=== PATIENT | female | born 1945 | race Caucasian/White ===

== ENCOUNTER 2023-05-08 12:20 | Inpatient (IN) | payer MEDICARE, OTHER ==
[2023-05-08] MEDS ORDERED: Acetaminophen/Codeine 30-300mg Tablet PO PRN (13:23)
[2023-05-08] MEDS ORDERED: Acetaminophen 500 MG TAB PO PRN (15:09)
[2023-05-08] MEDS: Propranolol 10 MG TAB PO SCH ×2 (15:31→20:56)
[2023-05-08] MEDS: Acetaminophen 500 MG TAB PO PRN (16:51)
[2023-05-08] MEDS: HumaLOG 300 UNITS/3 ML VIAL SC PRN (17:43)
[2023-05-08] MEDS ORDERED: Dextrose 50% Abboject 50 ML SYRINGE IVP PRN (17:45)
[2023-05-08] MEDS ORDERED: Dextrose 5% in Water 1,000 ML IV PRN (17:45)
[2023-05-08] MEDS ORDERED: Glucagon 1 MG/ML KIT IM PRN (17:45)
[2023-05-08] MEDS: Atorvastatin Calcium 10 MG TAB PO SCH (20:57)
[2023-05-08] MEDS: Aspirin 81 mg Enteric Coated Tablet PO SCH (20:57)
[2023-05-08] MEDS: clonazePAM 0.5 MG TAB PO SCH (20:58)
[2023-05-08] MEDS: Senokot S 8.6-50 MG TAB PO SCH (20:59)
[2023-05-09] MEDS: Levothyroxine Sodium 100 MCG TAB PO SCH (05:47)
[2023-05-09] MEDS: Propranolol 10 MG TAB PO SCH ×2 (08:14→14:56)
[2023-05-09] MEDS: Senokot S 8.6-50 MG TAB PO SCH ×2 (08:15→21:36)
[2023-05-09] MEDS: Losartan 25 MG TAB PO SCH (08:15)
[2023-05-09] MEDS: clonazePAM 0.5 MG TAB PO SCH ×2 (08:15→21:37)
[2023-05-09] MEDS: Escitalopram Oxalate 10 mg Tablet PO SCH (08:15)
[2023-05-09] MEDS: Cholecalciferol 1,000 UNITS (25 MCG) TAB PO SCH (08:16)
[2023-05-09] MEDS: Lantus 1000 UNITS/10 ML VIAL SC SCH (08:16)
[2023-05-09] MEDS: Polyethylene Glycol 3350 17 GM Packet PO SCH (08:17)
[2023-05-09] MEDS: Lidocaine 4% Patch TD SCH (08:17)
[2023-05-09] MEDS: HumaLOG 300 UNITS/3 ML VIAL SC PRN (12:11)
[2023-05-09] MEDS: Acetaminophen/Codeine 30-300mg Tablet PO PRN (16:05)
[2023-05-09] MEDS: Transdermal Patch Removal TOP SCH (20:59)
[2023-05-09] MEDS: Atorvastatin Calcium 10 MG TAB PO SCH (21:36)
[2023-05-09] MEDS: Aspirin 81 mg Enteric Coated Tablet PO SCH (21:36)
[2023-05-10] MEDS: Levothyroxine Sodium 100 MCG TAB PO SCH (05:34)
[2023-05-10 06:37] LABS: Hematocrit 39.7 % (36.0-47.0); Hemoglobin 13.2 g/dL (12.0-16.0); Mean Corpuscular HGB CONC 33.3 g/dL (32.0-36.0); Mean Corpuscular Hemoglobin 31.7 pg (27.0-31.0); Mean Corpuscular Volume 95.2 fl (78.0-98.0); Mean Platelet Volume 8.9 fL (7.4-10.4); Platelet Count 160 10x3/uL (130-400); RBC Distribution Width 12.3 % (11.5-14.5); Red Blood Cell (RBC) Count 4.17 mill/uL (4.20-5.40); White Blood Cell (WBC) Count 7.4 10x3/uL (4.8-10.8)
[2023-05-10 07:02] LABS: Anion Gap 17 mmol/L (10-20); BUN (Urea Nitrogen) 12 mg/dL (9.8-20.1); Calc. Creatinine Clearance 85 mL/min (70-130); Carbon Dioxide 21 mmol/L (23-31); Chloride 99 mmol/L (98-107); Estimated GFR 90; Glucose 97 mg/dL (83-110); Potassium 4.1 mmol/L (3.5-5.1); Sodium 133 mmol/L (136-145)
[2023-05-10] MEDS: Cholecalciferol 1,000 UNITS (25 MCG) TAB PO SCH (08:50)
[2023-05-10] MEDS: clonazePAM 0.5 MG TAB PO SCH ×2 (08:50→21:44)
[2023-05-10] MEDS: Escitalopram Oxalate 10 mg Tablet PO SCH (08:51)
[2023-05-10] MEDS: Lantus 1000 UNITS/10 ML VIAL SC SCH (08:51)
[2023-05-10] MEDS: Losartan 25 MG TAB PO SCH (08:51)
[2023-05-10] MEDS: Lidocaine 4% Patch TD SCH (08:52)
[2023-05-10] MEDS: Polyethylene Glycol 3350 17 GM Packet PO SCH (08:52)
[2023-05-10] MEDS: Senokot S 8.6-50 MG TAB PO SCH ×2 (08:52→21:44)
[2023-05-10] MEDS: Acetaminophen/Codeine 30-300mg Tablet PO PRN ×2 (11:23→18:26)
[2023-05-10] MEDS: HumaLOG 300 UNITS/3 ML VIAL SC PRN (11:53)
[2023-05-10] MEDS ORDERED: HumaLOG 300 UNITS/3 ML VIAL SC PRN (21:30)
[2023-05-10] MEDS: Atorvastatin Calcium 10 MG TAB PO SCH (21:43)
[2023-05-10] MEDS: Aspirin 81 mg Enteric Coated Tablet PO SCH (21:44)
[2023-05-10] MEDS: Propranolol 10 MG TAB PO SCH (21:44)
[2023-05-10] MEDS: Transdermal Patch Removal TOP SCH (21:45)
[2023-05-11] MEDS: Levothyroxine Sodium 100 MCG TAB PO SCH (05:34)
[2023-05-11] MEDS: Acetaminophen/Codeine 30-300mg Tablet PO PRN ×3 (05:34→17:58)
[2023-05-11] MEDS: Cholecalciferol 1,000 UNITS (25 MCG) TAB PO SCH (08:36)
[2023-05-11] MEDS: clonazePAM 0.5 MG TAB PO SCH ×2 (08:36→21:13)
[2023-05-11] MEDS: Losartan 25 MG TAB PO SCH (08:36)
[2023-05-11] MEDS: Escitalopram Oxalate 10 mg Tablet PO SCH (08:36)
[2023-05-11] MEDS: Polyethylene Glycol 3350 17 GM Packet PO SCH (08:37)
[2023-05-11] MEDS: Lidocaine 4% Patch TD SCH (08:37)
[2023-05-11] MEDS: Senokot S 8.6-50 MG TAB PO SCH ×2 (08:37→21:14)
[2023-05-11] MEDS: Lantus 1000 UNITS/10 ML VIAL SC SCH (08:39)
[2023-05-11] MEDS: HumaLOG 300 UNITS/3 ML VIAL SC PRN (11:57)
[2023-05-11] MEDS: Propranolol 10 MG TAB PO SCH (21:12)
[2023-05-11] MEDS: Atorvastatin Calcium 10 MG TAB PO SCH (21:13)
[2023-05-11] MEDS: Aspirin 81 mg Enteric Coated Tablet PO SCH (21:14)
[2023-05-11] MEDS: Transdermal Patch Removal TOP SCH (21:15)
[2023-05-12] MEDS: Acetaminophen/Codeine 30-300mg Tablet PO PRN ×3 (01:21→20:30)
[2023-05-12] MEDS: Levothyroxine Sodium 100 MCG TAB PO SCH (05:32)
[2023-05-12] MEDS: Acetaminophen 500 MG TAB PO PRN (05:32)
[2023-05-12] MEDS: Polyethylene Glycol 3350 17 GM Packet PO SCH (08:28)
[2023-05-12] MEDS: Cholecalciferol 1,000 UNITS (25 MCG) TAB PO SCH (08:28)
[2023-05-12] MEDS: Senokot S 8.6-50 MG TAB PO SCH ×2 (08:29→20:28)
[2023-05-12] MEDS: Losartan 25 MG TAB PO SCH (08:30)
[2023-05-12] MEDS: clonazePAM 0.5 MG TAB PO SCH ×2 (08:30→20:28)
[2023-05-12] MEDS: Escitalopram Oxalate 10 mg Tablet PO SCH (08:30)
[2023-05-12] MEDS: Lidocaine 4% Patch TD SCH (08:30)
[2023-05-12] MEDS: Lantus 1000 UNITS/10 ML VIAL SC SCH (08:31)
[2023-05-12] MEDS: HumaLOG 300 UNITS/3 ML VIAL SC PRN (12:22)
[2023-05-12] MEDS: Atorvastatin Calcium 10 MG TAB PO SCH (20:27)
[2023-05-12] MEDS: Aspirin 81 mg Enteric Coated Tablet PO SCH (20:28)
[2023-05-12] MEDS: Propranolol 10 MG TAB PO SCH (20:28)
[2023-05-12] MEDS: Transdermal Patch Removal TOP SCH (20:32)
[2023-05-13] MEDS: Acetaminophen/Codeine 30-300mg Tablet PO PRN ×3 (05:26→21:07)
[2023-05-13] MEDS: Levothyroxine Sodium 100 MCG TAB PO SCH (05:26)
[2023-05-13 05:41] LABS: Anion Gap 15 mmol/L (10-20); BUN (Urea Nitrogen) 10 mg/dL (9.8-20.1); Calc. Creatinine Clearance 80 mL/min (70-130); Carbon Dioxide 26 mmol/L (23-31); Chloride 97 mmol/L (98-107); Estimated GFR 84; Glucose 139 mg/dL (83-110); Potassium 4.7 mmol/L (3.5-5.1); Sodium 133 mmol/L (136-145)
[2023-05-13] MEDS: clonazePAM 0.5 MG TAB PO SCH ×2 (08:05→21:06)
[2023-05-13] MEDS: Escitalopram Oxalate 10 mg Tablet PO SCH (08:05)
[2023-05-13] MEDS: Cholecalciferol 1,000 UNITS (25 MCG) TAB PO SCH (08:05)
[2023-05-13] MEDS: Lantus 1000 UNITS/10 ML VIAL SC SCH (08:06)
[2023-05-13] MEDS: Polyethylene Glycol 3350 17 GM Packet PO SCH (08:07)
[2023-05-13] MEDS: Losartan 25 MG TAB PO SCH (08:07)
[2023-05-13] MEDS: Lidocaine 4% Patch TD SCH (08:07)
[2023-05-13] MEDS: HumaLOG 300 UNITS/3 ML VIAL SC PRN (08:08)
[2023-05-13] MEDS: Senokot S 8.6-50 MG TAB PO SCH ×2 (08:08→21:05)
[2023-05-13] MEDS: Propranolol 10 MG TAB PO SCH (21:04)
[2023-05-13] MEDS: Aspirin 81 mg Enteric Coated Tablet PO SCH (21:05)
[2023-05-13] MEDS: Atorvastatin Calcium 10 MG TAB PO SCH (21:05)
[2023-05-13] MEDS: Transdermal Patch Removal TOP SCH (21:08)
[2023-05-14] MEDS: Acetaminophen/Codeine 30-300mg Tablet PO PRN ×2 (05:29→18:47)
[2023-05-14] MEDS: Levothyroxine Sodium 100 MCG TAB PO SCH (05:29)
[2023-05-14] MEDS: clonazePAM 0.5 MG TAB PO SCH ×2 (08:15→21:23)
[2023-05-14] MEDS: HumaLOG 300 UNITS/3 ML VIAL SC PRN (08:16)
[2023-05-14] MEDS: Lantus 1000 UNITS/10 ML VIAL SC SCH (08:18)
[2023-05-14] MEDS: Cholecalciferol 1,000 UNITS (25 MCG) TAB PO SCH (08:19)
[2023-05-14] MEDS: Escitalopram Oxalate 10 mg Tablet PO SCH (08:19)
[2023-05-14] MEDS: Lidocaine 4% Patch TD SCH (08:20)
[2023-05-14] MEDS: Polyethylene Glycol 3350 17 GM Packet PO SCH (08:20)
[2023-05-14] MEDS: Senokot S 8.6-50 MG TAB PO SCH ×2 (08:20→21:24)
[2023-05-14] MEDS: Losartan 25 MG TAB PO SCH (08:20)
[2023-05-14] MEDS ORDERED: Docusate Sodium 100 MG/10 ML UDCUP PO PRN (13:04)
[2023-05-14] MEDS ORDERED: Bisacodyl 10 MG SUPP PR PRN (17:52)
[2023-05-14] MEDS ORDERED: Fleet Saline Enema 133 ML BOT FS PRN (17:53)
[2023-05-14] MEDS: Atorvastatin Calcium 10 MG TAB PO SCH (21:23)
[2023-05-14] MEDS: Propranolol 10 MG TAB PO SCH (21:23)
[2023-05-14] MEDS: Aspirin 81 mg Enteric Coated Tablet PO SCH (21:24)
[2023-05-14] MEDS: Transdermal Patch Removal TOP SCH (22:23)
[2023-05-15] MEDS: Acetaminophen/Codeine 30-300mg Tablet PO PRN ×3 (01:49→20:54)
[2023-05-15] MEDS: Levothyroxine Sodium 100 MCG TAB PO SCH (05:56)
[2023-05-15] MEDS: Lantus 1000 UNITS/10 ML VIAL SC SCH (08:20)
[2023-05-15] MEDS: Senokot S 8.6-50 MG TAB PO SCH ×2 (08:21→20:08)
[2023-05-15] MEDS: Polyethylene Glycol 3350 17 GM Packet PO SCH (08:21)
[2023-05-15] MEDS: Escitalopram Oxalate 10 mg Tablet PO SCH (08:21)
[2023-05-15] MEDS: Lidocaine 4% Patch TD SCH (08:21)
[2023-05-15] MEDS: Cholecalciferol 1,000 UNITS (25 MCG) TAB PO SCH (08:21)
[2023-05-15] MEDS: Losartan 25 MG TAB PO SCH (08:21)
[2023-05-15] MEDS: clonazePAM 0.5 MG TAB PO SCH ×2 (08:26→20:07)
[2023-05-15] MEDS: HumaLOG 300 UNITS/3 ML VIAL SC PRN ×2 (12:07→17:14)
[2023-05-15] MEDS: Propranolol 10 MG TAB PO SCH (20:07)
[2023-05-15] MEDS: Atorvastatin Calcium 10 MG TAB PO SCH (20:07)
[2023-05-15] MEDS: Aspirin 81 mg Enteric Coated Tablet PO SCH (20:08)
[2023-05-15] MEDS: Meclizine HCl 25 MG TAB PO PRN (23:27)
[2023-05-15] MEDS: Transdermal Patch Removal TOP SCH (23:35)
[2023-05-16] MEDS: Levothyroxine Sodium 100 MCG TAB PO SCH (05:31)
[2023-05-16] MEDS: clonazePAM 0.5 MG TAB PO SCH ×2 (08:27→20:20)
[2023-05-16] MEDS: Polyethylene Glycol 3350 17 GM Packet PO SCH (08:29)
[2023-05-16] MEDS: Lidocaine 4% Patch TD SCH (08:29)
[2023-05-16] MEDS: Lantus 1000 UNITS/10 ML VIAL SC SCH (08:33)
[2023-05-16] MEDS: Losartan 25 MG TAB PO SCH (08:33)
[2023-05-16] MEDS: Cholecalciferol 1,000 UNITS (25 MCG) TAB PO SCH (08:33)
[2023-05-16] MEDS: Senokot S 8.6-50 MG TAB PO SCH ×2 (08:33→20:22)
[2023-05-16] MEDS: Escitalopram Oxalate 10 mg Tablet PO SCH (08:33)
[2023-05-16] MEDS: HumaLOG 300 UNITS/3 ML VIAL SC PRN ×2 (12:02→17:33)
[2023-05-16] MEDS: Aspirin 81 mg Enteric Coated Tablet PO SCH (20:20)
[2023-05-16] MEDS: Atorvastatin Calcium 10 MG TAB PO SCH (20:20)
[2023-05-16] MEDS: Acetaminophen/Codeine 30-300mg Tablet PO PRN (20:21)
[2023-05-16] MEDS: Propranolol 10 MG TAB PO SCH (20:21)
[2023-05-16] MEDS: Transdermal Patch Removal TOP SCH (20:23)
[2023-05-17] MEDS: Levothyroxine Sodium 100 MCG TAB PO SCH (05:42)
[2023-05-17] MEDS: Acetaminophen/Codeine 30-300mg Tablet PO PRN ×2 (05:42→23:14)
[2023-05-17] MEDS: Polyethylene Glycol 3350 17 GM Packet PO SCH (08:11)
[2023-05-17] MEDS: Senokot S 8.6-50 MG TAB PO SCH ×2 (08:11→20:23)
[2023-05-17] MEDS: Lidocaine 4% Patch TD SCH (08:11)
[2023-05-17] MEDS: Escitalopram Oxalate 10 mg Tablet PO SCH (08:12)
[2023-05-17] MEDS: Cholecalciferol 1,000 UNITS (25 MCG) TAB PO SCH (08:12)
[2023-05-17] MEDS: clonazePAM 0.5 MG TAB PO SCH ×2 (08:12→20:23)
[2023-05-17] MEDS: Losartan 25 MG TAB PO SCH (08:12)
[2023-05-17] MEDS: Lantus 1000 UNITS/10 ML VIAL SC SCH (08:13)
[2023-05-17] MEDS: HumaLOG 300 UNITS/3 ML VIAL SC PRN (08:13)
[2023-05-17] MEDS: Acetaminophen 500 MG TAB PO PRN ×2 (09:19→20:43)
[2023-05-17] MEDS: Nystatin 500,000 UNITS/5 ML UDCUP SSW SCH ×2 (16:56→20:21)
[2023-05-17] MEDS: Propranolol 10 MG TAB PO SCH (20:21)
[2023-05-17] MEDS: Aspirin 81 mg Enteric Coated Tablet PO SCH (20:23)
[2023-05-17] MEDS: Atorvastatin Calcium 10 MG TAB PO SCH (20:23)
[2023-05-17] MEDS: Transdermal Patch Removal TOP SCH (20:24)
[2023-05-18] MEDS: Acetaminophen/Codeine 30-300mg Tablet PO PRN ×3 (05:31→20:12)
[2023-05-18] MEDS: Levothyroxine Sodium 100 MCG TAB PO SCH (05:32)
[2023-05-18] MEDS: Acetaminophen 500 MG TAB PO PRN ×2 (07:46→17:30)
[2023-05-18] MEDS: Cholecalciferol 1,000 UNITS (25 MCG) TAB PO SCH (08:07)
[2023-05-18] MEDS: Escitalopram Oxalate 10 mg Tablet PO SCH (08:07)
[2023-05-18] MEDS: Losartan 25 MG TAB PO SCH (08:07)
[2023-05-18] MEDS: Polyethylene Glycol 3350 17 GM Packet PO SCH (08:07)
[2023-05-18] MEDS: Lidocaine 4% Patch TD SCH (08:07)
[2023-05-18] MEDS: Nystatin 500,000 UNITS/5 ML UDCUP SSW SCH ×4 (08:07→20:12)
[2023-05-18] MEDS: clonazePAM 0.5 MG TAB PO SCH ×2 (08:08→20:12)
[2023-05-18] MEDS: Senokot S 8.6-50 MG TAB PO SCH ×2 (08:08→20:13)
[2023-05-18] MEDS: Lantus 1000 UNITS/10 ML VIAL SC SCH (08:16)
[2023-05-18] MEDS: HumaLOG 300 UNITS/3 ML VIAL SC PRN (08:16)
[2023-05-18] MEDS: Aspirin 81 mg Enteric Coated Tablet PO SCH (20:13)
[2023-05-18] MEDS: Ibuprofen 400 MG TAB PO PRN (20:13)
[2023-05-18] MEDS: Propranolol 10 MG TAB PO SCH (20:13)
[2023-05-18] MEDS: Transdermal Patch Removal TOP SCH (20:13)
[2023-05-18] MEDS: Atorvastatin Calcium 10 MG TAB PO SCH (20:13)
[2023-05-19] MEDS: Acetaminophen/Codeine 30-300mg Tablet PO PRN ×2 (05:32→20:39)
[2023-05-19] MEDS: Levothyroxine Sodium 100 MCG TAB PO SCH (05:32)
[2023-05-19] MEDS: Ibuprofen 400 MG TAB PO PRN ×2 (05:32→15:06)
[2023-05-19] MEDS: Polyethylene Glycol 3350 17 GM Packet PO SCH (08:44)
[2023-05-19] MEDS: Lidocaine 4% Patch TD SCH (08:45)
[2023-05-19] MEDS: Senokot S 8.6-50 MG TAB PO SCH ×2 (08:45→20:38)
[2023-05-19] MEDS: Losartan 25 MG TAB PO SCH (08:45)
[2023-05-19] MEDS: Cholecalciferol 1,000 UNITS (25 MCG) TAB PO SCH (08:45)
[2023-05-19] MEDS: Escitalopram Oxalate 10 mg Tablet PO SCH (08:46)
[2023-05-19] MEDS: Lantus 1000 UNITS/10 ML VIAL SC SCH (08:46)
[2023-05-19] MEDS: clonazePAM 0.5 MG TAB PO SCH ×2 (08:49→20:38)
[2023-05-19] MEDS: Nystatin 500,000 UNITS/5 ML UDCUP SSW SCH ×4 (08:59→20:39)
[2023-05-19] MEDS: Aspirin 81 mg Enteric Coated Tablet PO SCH (20:39)
[2023-05-19] MEDS: Propranolol 10 MG TAB PO SCH (20:39)
[2023-05-19] MEDS: Atorvastatin Calcium 10 MG TAB PO SCH (20:39)
[2023-05-19] MEDS: Transdermal Patch Removal TOP SCH (20:40)
[2023-05-20] MEDS: Levothyroxine Sodium 100 MCG TAB PO SCH (05:00)
[2023-05-20] MEDS: Ibuprofen 400 MG TAB PO PRN ×3 (05:00→20:19)
[2023-05-20] MEDS: Acetaminophen/Codeine 30-300mg Tablet PO PRN ×2 (05:01→20:19)
[2023-05-20] MEDS: Lantus 1000 UNITS/10 ML VIAL SC SCH (08:23)
[2023-05-20] MEDS: Lidocaine 4% Patch TD SCH (08:23)
[2023-05-20] MEDS: clonazePAM 0.5 MG TAB PO SCH ×2 (08:24→20:14)
[2023-05-20] MEDS: Polyethylene Glycol 3350 17 GM Packet PO SCH (08:25)
[2023-05-20] MEDS: Losartan 25 MG TAB PO SCH (08:25)
[2023-05-20] MEDS: Escitalopram Oxalate 10 mg Tablet PO SCH (08:25)
[2023-05-20] MEDS: Senokot S 8.6-50 MG TAB PO SCH ×2 (08:25→20:14)
[2023-05-20] MEDS: Cholecalciferol 1,000 UNITS (25 MCG) TAB PO SCH (08:25)
[2023-05-20] MEDS: Nystatin 500,000 UNITS/5 ML UDCUP SSW SCH (08:26)
[2023-05-20] MEDS: HumaLOG 300 UNITS/3 ML VIAL SC PRN ×2 (11:17→17:02)
[2023-05-20] MEDS: Propranolol 10 MG TAB PO SCH (20:13)
[2023-05-20] MEDS: Aspirin 81 mg Enteric Coated Tablet PO SCH (20:14)
[2023-05-20] MEDS: Atorvastatin Calcium 10 MG TAB PO SCH (20:14)
[2023-05-20] MEDS: Transdermal Patch Removal TOP SCH (20:15)
[2023-05-21] MEDS: Ibuprofen 400 MG TAB PO PRN ×2 (05:32→18:31)
[2023-05-21] MEDS: Acetaminophen/Codeine 30-300mg Tablet PO PRN ×2 (05:32→18:30)
[2023-05-21] MEDS: Levothyroxine Sodium 100 MCG TAB PO SCH (05:32)
[2023-05-21] MEDS: Escitalopram Oxalate 10 mg Tablet PO SCH (08:38)
[2023-05-21] MEDS: Losartan 25 MG TAB PO SCH (08:39)
[2023-05-21] MEDS: clonazePAM 0.5 MG TAB PO SCH ×2 (08:39→21:10)
[2023-05-21] MEDS: Senokot S 8.6-50 MG TAB PO SCH ×2 (08:39→21:10)
[2023-05-21] MEDS: Cholecalciferol 1,000 UNITS (25 MCG) TAB PO SCH (08:39)
[2023-05-21] MEDS: Polyethylene Glycol 3350 17 GM Packet PO SCH (08:40)
[2023-05-21] MEDS: Lantus 1000 UNITS/10 ML VIAL SC SCH (08:41)
[2023-05-21] MEDS: Lidocaine 4% Patch TD SCH (08:42)
[2023-05-21] MEDS: Transdermal Patch Removal TOP SCH (21:10)
[2023-05-21] MEDS: Propranolol 10 MG TAB PO SCH (21:10)
[2023-05-21] MEDS: Atorvastatin Calcium 10 MG TAB PO SCH (21:10)
[2023-05-21] MEDS: Aspirin 81 mg Enteric Coated Tablet PO SCH (21:10)
[2023-05-22] MEDS: Levothyroxine Sodium 100 MCG TAB PO SCH (07:16)
[2023-05-22] MEDS: Senokot S 8.6-50 MG TAB PO SCH ×2 (08:24→19:39)
[2023-05-22] MEDS: Escitalopram Oxalate 10 mg Tablet PO SCH (08:24)
[2023-05-22] MEDS: Polyethylene Glycol 3350 17 GM Packet PO SCH (08:24)
[2023-05-22] MEDS: clonazePAM 0.5 MG TAB PO SCH ×2 (08:24→19:39)
[2023-05-22] MEDS: Losartan 25 MG TAB PO SCH (08:24)
[2023-05-22] MEDS: Cholecalciferol 1,000 UNITS (25 MCG) TAB PO SCH (08:24)
[2023-05-22] MEDS: Lidocaine 4% Patch TD SCH (08:25)
[2023-05-22] MEDS: Lantus 1000 UNITS/10 ML VIAL SC SCH (08:25)
[2023-05-22] MEDS: Ibuprofen 400 MG TAB PO PRN ×2 (11:04→19:40)
[2023-05-22] MEDS: HumaLOG 300 UNITS/3 ML VIAL SC PRN (17:27)
[2023-05-22] MEDS: Aspirin 81 mg Enteric Coated Tablet PO SCH (19:39)
[2023-05-22] MEDS: Propranolol 10 MG TAB PO SCH (19:39)
[2023-05-22] MEDS: Atorvastatin Calcium 10 MG TAB PO SCH (19:40)
[2023-05-22] MEDS: Acetaminophen/Codeine 30-300mg Tablet PO PRN (19:41)
[2023-05-22] MEDS: Transdermal Patch Removal TOP SCH (22:22)
[2023-05-23 05:25] LABS: Hematocrit 35.3 % (36.0-47.0); Hemoglobin 12.3 g/dL (12.0-16.0); Platelet Count 237 10x3/uL (130-400)
[2023-05-23] MEDS: Levothyroxine Sodium 100 MCG TAB PO SCH (05:31)
[2023-05-23] MEDS: Acetaminophen/Codeine 30-300mg Tablet PO PRN (09:24)
[2023-05-23] MEDS: Losartan 25 MG TAB PO SCH (09:25)
[2023-05-23] MEDS: Senokot S 8.6-50 MG TAB PO SCH ×2 (09:25→20:30)
[2023-05-23] MEDS: Ibuprofen 400 MG TAB PO PRN ×2 (09:25→20:31)
[2023-05-23] MEDS: clonazePAM 0.5 MG TAB PO SCH ×2 (09:25→20:31)
[2023-05-23] MEDS: Escitalopram Oxalate 10 mg Tablet PO SCH (09:25)
[2023-05-23] MEDS: Polyethylene Glycol 3350 17 GM Packet PO SCH (09:26)
[2023-05-23] MEDS: Cholecalciferol 1,000 UNITS (25 MCG) TAB PO SCH (09:26)
[2023-05-23] MEDS: Lantus 1000 UNITS/10 ML VIAL SC SCH (09:30)
[2023-05-23] MEDS: Lidocaine 4% Patch TD SCH (09:30)
[2023-05-23] MEDS: Transdermal Patch Removal TOP SCH (19:38)
[2023-05-23] MEDS: Propranolol 10 MG TAB PO SCH (20:30)
[2023-05-23] MEDS: Atorvastatin Calcium 10 MG TAB PO SCH (20:30)
[2023-05-23] MEDS: Aspirin 81 mg Enteric Coated Tablet PO SCH (20:31)
[2023-05-24] MEDS: Levothyroxine Sodium 100 MCG TAB PO SCH (05:06)
[2023-05-24] MEDS: Acetaminophen/Codeine 30-300mg Tablet PO PRN ×2 (05:06→20:22)
[2023-05-24] MEDS: Senokot S 8.6-50 MG TAB PO SCH ×2 (08:52→20:17)
[2023-05-24] MEDS: Escitalopram Oxalate 10 mg Tablet PO SCH (08:52)
[2023-05-24] MEDS: clonazePAM 0.5 MG TAB PO SCH ×2 (08:52→20:14)
[2023-05-24] MEDS: Losartan 25 MG TAB PO SCH (08:52)
[2023-05-24] MEDS: Cholecalciferol 1,000 UNITS (25 MCG) TAB PO SCH (08:53)
[2023-05-24] MEDS: Lantus 1000 UNITS/10 ML VIAL SC SCH (08:53)
[2023-05-24] MEDS: Polyethylene Glycol 3350 17 GM Packet PO SCH (08:53)
[2023-05-24] MEDS: Lidocaine 4% Patch TD SCH (08:54)
[2023-05-24] MEDS: Propranolol 10 MG TAB PO SCH (20:16)
[2023-05-24] MEDS: Aspirin 81 mg Enteric Coated Tablet PO SCH (20:17)
[2023-05-24] MEDS: Atorvastatin Calcium 10 MG TAB PO SCH (20:17)
[2023-05-24] MEDS: Ibuprofen 400 MG TAB PO PRN (20:18)
[2023-05-24] MEDS: Transdermal Patch Removal TOP SCH (20:20)
[2023-05-25] MEDS: Levothyroxine Sodium 100 MCG TAB PO SCH (05:13)
[2023-05-25] MEDS: Acetaminophen/Codeine 30-300mg Tablet PO PRN (05:13)
[2023-05-25] MEDS: Cholecalciferol 1,000 UNITS (25 MCG) TAB PO SCH (08:27)
[2023-05-25] MEDS: Escitalopram Oxalate 10 mg Tablet PO SCH (08:27)
[2023-05-25] MEDS: Losartan 25 MG TAB PO SCH (08:27)
[2023-05-25] MEDS: clonazePAM 0.5 MG TAB PO SCH ×2 (08:27→20:18)
[2023-05-25] MEDS: Polyethylene Glycol 3350 17 GM Packet PO SCH (08:28)
[2023-05-25] MEDS: Lidocaine 4% Patch TD SCH (08:28)
[2023-05-25] MEDS: Lantus 1000 UNITS/10 ML VIAL SC SCH (08:29)
[2023-05-25] MEDS: Senokot S 8.6-50 MG TAB PO SCH ×2 (08:30→20:18)
[2023-05-25] MEDS: Ondansetron ODT 4 MG TAB PO PRN (09:10)
[2023-05-25] MEDS: HumaLOG 300 UNITS/3 ML VIAL SC PRN (16:55)
[2023-05-25] MEDS: Aspirin 81 mg Enteric Coated Tablet PO SCH (20:19)
[2023-05-25] MEDS: Atorvastatin Calcium 10 MG TAB PO SCH (20:19)
[2023-05-25] MEDS: Ibuprofen 400 MG TAB PO PRN (20:23)
[2023-05-25] MEDS: Propranolol 10 MG TAB PO SCH (20:25)
[2023-05-25] MEDS: Transdermal Patch Removal TOP SCH (20:27)
[2023-05-26] MEDS: Acetaminophen/Codeine 30-300mg Tablet PO PRN (05:44)
[2023-05-26] MEDS: Levothyroxine Sodium 100 MCG TAB PO SCH (05:45)
[2023-05-26] MEDS: Escitalopram Oxalate 10 mg Tablet PO SCH (08:47)
[2023-05-26] MEDS: Polyethylene Glycol 3350 17 GM Packet PO SCH (08:47)
[2023-05-26] MEDS: Senokot S 8.6-50 MG TAB PO SCH ×2 (08:47→20:07)
[2023-05-26] MEDS: Cholecalciferol 1,000 UNITS (25 MCG) TAB PO SCH (08:47)
[2023-05-26] MEDS: Losartan 25 MG TAB PO SCH (08:47)
[2023-05-26] MEDS: clonazePAM 0.5 MG TAB PO SCH ×2 (08:47→20:07)
[2023-05-26] MEDS: Lantus 1000 UNITS/10 ML VIAL SC SCH (08:48)
[2023-05-26] MEDS: Lidocaine 4% Patch TD SCH (08:48)
[2023-05-26] MEDS: Ibuprofen 400 MG TAB PO PRN (14:23)
[2023-05-26] MEDS: Atorvastatin Calcium 10 MG TAB PO SCH (20:06)
[2023-05-26] MEDS: Propranolol 10 MG TAB PO SCH (20:06)
[2023-05-26] MEDS: Transdermal Patch Removal TOP SCH ×2 (20:07→20:13)
[2023-05-26] MEDS: Aspirin 81 mg Enteric Coated Tablet PO SCH (20:07)
[2023-05-27] MEDS: Ibuprofen 400 MG TAB PO PRN ×2 (01:50→20:41)
[2023-05-27] MEDS: Levothyroxine Sodium 100 MCG TAB PO SCH (05:48)
[2023-05-27] MEDS: Acetaminophen/Codeine 30-300mg Tablet PO PRN ×2 (05:48→20:39)
[2023-05-27] MEDS: Losartan 25 MG TAB PO SCH (08:11)
[2023-05-27] MEDS: clonazePAM 0.5 MG TAB PO SCH ×2 (08:11→20:41)
[2023-05-27] MEDS: Senokot S 8.6-50 MG TAB PO SCH ×2 (08:12→20:42)
[2023-05-27] MEDS: Ondansetron ODT 4 MG TAB PO PRN (08:12)
[2023-05-27] MEDS: Cholecalciferol 1,000 UNITS (25 MCG) TAB PO SCH (08:12)
[2023-05-27] MEDS: Escitalopram Oxalate 10 mg Tablet PO SCH (08:12)
[2023-05-27] MEDS: Polyethylene Glycol 3350 17 GM Packet PO SCH (08:12)
[2023-05-27] MEDS: HumaLOG 300 UNITS/3 ML VIAL SC PRN (08:13)
[2023-05-27] MEDS: Lantus 1000 UNITS/10 ML VIAL SC SCH (08:13)
[2023-05-27] MEDS: Atorvastatin Calcium 10 MG TAB PO SCH (20:41)
[2023-05-27] MEDS: Aspirin 81 mg Enteric Coated Tablet PO SCH (20:42)
[2023-05-27] MEDS: Propranolol 10 MG TAB PO SCH (20:42)
[2023-05-28 05:24] LABS: Hematocrit 37.4 % (36.0-47.0); Hemoglobin 12.5 g/dL (12.0-16.0); Platelet Count 195 10x3/uL (130-400)
[2023-05-28] MEDS: Ibuprofen 400 MG TAB PO PRN ×2 (05:35→21:02)
[2023-05-28] MEDS: Levothyroxine Sodium 100 MCG TAB PO SCH (05:35)
[2023-05-28] MEDS: clonazePAM 0.5 MG TAB PO SCH ×2 (08:34→20:54)
[2023-05-28] MEDS: Polyethylene Glycol 3350 17 GM Packet PO SCH (08:35)
[2023-05-28] MEDS: Senokot S 8.6-50 MG TAB PO SCH ×2 (08:36→20:56)
[2023-05-28] MEDS: Cholecalciferol 1,000 UNITS (25 MCG) TAB PO SCH (08:37)
[2023-05-28] MEDS: Escitalopram Oxalate 10 mg Tablet PO SCH (08:37)
[2023-05-28] MEDS: Losartan 25 MG TAB PO SCH (08:37)
[2023-05-28] MEDS: Lantus 1000 UNITS/10 ML VIAL SC SCH (08:37)
[2023-05-28] MEDS: Propranolol 10 MG TAB PO SCH (20:55)
[2023-05-28] MEDS: Atorvastatin Calcium 10 MG TAB PO SCH (20:56)
[2023-05-28] MEDS: Aspirin 81 mg Enteric Coated Tablet PO SCH (20:56)
[2023-05-29] MEDS: Levothyroxine Sodium 100 MCG TAB PO SCH (05:23)
[2023-05-29] MEDS: Cholecalciferol 1,000 UNITS (25 MCG) TAB PO SCH (08:38)
[2023-05-29] MEDS: Losartan 25 MG TAB PO SCH (08:38)
[2023-05-29] MEDS: Escitalopram Oxalate 10 mg Tablet PO SCH (08:38)
[2023-05-29] MEDS: clonazePAM 0.5 MG TAB PO SCH ×2 (08:38→20:50)
[2023-05-29] MEDS: Polyethylene Glycol 3350 17 GM Packet PO SCH (08:38)
[2023-05-29] MEDS: Lantus 1000 UNITS/10 ML VIAL SC SCH (08:39)
[2023-05-29] MEDS: Senokot S 8.6-50 MG TAB PO SCH ×2 (08:41→20:52)
[2023-05-29] MEDS: Aspirin 81 mg Enteric Coated Tablet PO SCH (20:51)
[2023-05-29] MEDS: Atorvastatin Calcium 10 MG TAB PO SCH (20:51)
[2023-05-29] MEDS: Propranolol 10 MG TAB PO SCH (20:51)
[2023-05-29] MEDS: Ibuprofen 400 MG TAB PO PRN (20:52)
[2023-05-29] MEDS ORDERED: Nystatin Cream 15 GM TUBE TOP SCH (21:00)
[2023-05-29] MEDS: Acetaminophen/Codeine 30-300mg Tablet PO PRN (22:01)
[2023-05-30] MEDS: Levothyroxine Sodium 100 MCG TAB PO SCH (05:16)
[2023-05-30] MEDS: Escitalopram Oxalate 10 mg Tablet PO SCH (08:39)
[2023-05-30] MEDS: Senokot S 8.6-50 MG TAB PO SCH ×2 (08:39→20:50)
[2023-05-30] MEDS: Losartan 25 MG TAB PO SCH (08:39)
[2023-05-30] MEDS: Cholecalciferol 1,000 UNITS (25 MCG) TAB PO SCH (08:39)
[2023-05-30] MEDS: Lantus 1000 UNITS/10 ML VIAL SC SCH (08:39)
[2023-05-30] MEDS: clonazePAM 0.5 MG TAB PO SCH ×2 (08:39→20:50)
[2023-05-30] MEDS: Polyethylene Glycol 3350 17 GM Packet PO SCH (08:40)
[2023-05-30] MEDS: HumaLOG 300 UNITS/3 ML VIAL SC PRN (17:06)
[2023-05-30] MEDS: Aspirin 81 mg Enteric Coated Tablet PO SCH (20:50)
[2023-05-30] MEDS: Propranolol 10 MG TAB PO SCH (20:50)
[2023-05-30] MEDS: Atorvastatin Calcium 10 MG TAB PO SCH (20:50)
[2023-05-30] MEDS: Ibuprofen 400 MG TAB PO PRN (20:51)
[2023-05-30] MEDS ORDERED: rOPINIRole HCl 0.25 MG TAB PO SCH (21:00)
[2023-05-31] MEDS: Levothyroxine Sodium 100 MCG TAB PO SCH (05:28)
[2023-05-31] MEDS: Ibuprofen 400 MG TAB PO PRN ×2 (05:31→20:15)
[2023-05-31] MEDS: clonazePAM 0.5 MG TAB PO SCH ×2 (08:17→20:10)
[2023-05-31] MEDS: Losartan 25 MG TAB PO SCH (08:17)
[2023-05-31] MEDS: Senokot S 8.6-50 MG TAB PO SCH ×2 (08:17→20:10)
[2023-05-31] MEDS: Polyethylene Glycol 3350 17 GM Packet PO SCH (08:17)
[2023-05-31] MEDS: Cholecalciferol 1,000 UNITS (25 MCG) TAB PO SCH (08:17)
[2023-05-31] MEDS: Escitalopram Oxalate 10 mg Tablet PO SCH (08:17)
[2023-05-31] MEDS: Lantus 1000 UNITS/10 ML VIAL SC SCH (08:18)
[2023-05-31] MEDS: HumaLOG 300 UNITS/3 ML VIAL SC PRN (08:20)
[2023-05-31] MEDS: rOPINIRole HCl 0.25 MG TAB PO SCH (17:36)
[2023-05-31] MEDS: Propranolol 10 MG TAB PO SCH (20:09)
[2023-05-31] MEDS: Atorvastatin Calcium 10 MG TAB PO SCH (20:10)
[2023-05-31] MEDS: Aspirin 81 mg Enteric Coated Tablet PO SCH (20:10)
[2023-06-01] MEDS: Levothyroxine Sodium 100 MCG TAB PO SCH (05:36)
[2023-06-01] MEDS: Ibuprofen 400 MG TAB PO PRN (05:37)
[2023-06-01] MEDS: Cholecalciferol 1,000 UNITS (25 MCG) TAB PO SCH (08:10)
[2023-06-01] MEDS: clonazePAM 0.5 MG TAB PO SCH ×2 (08:10→20:19)
[2023-06-01] MEDS: Losartan 25 MG TAB PO SCH (08:10)
[2023-06-01] MEDS: Polyethylene Glycol 3350 17 GM Packet PO SCH (08:10)
[2023-06-01] MEDS: Escitalopram Oxalate 10 mg Tablet PO SCH (08:10)
[2023-06-01] MEDS: Senokot S 8.6-50 MG TAB PO SCH ×2 (08:10→20:21)
[2023-06-01] MEDS: Lantus 1000 UNITS/10 ML VIAL SC SCH (08:11)
[2023-06-01] MEDS: HumaLOG 300 UNITS/3 ML VIAL SC PRN (08:14)
[2023-06-01] MEDS: Ondansetron ODT 4 MG TAB PO PRN ×2 (13:36→14:09)
[2023-06-01] MEDS ORDERED: Ondansetron ODT 4 MG TAB PO SCH (17:00)
[2023-06-01] MEDS: rOPINIRole HCl 0.25 MG TAB PO SCH (18:02)
[2023-06-01] MEDS: Propranolol 10 MG TAB PO SCH (20:20)
[2023-06-01] MEDS: Atorvastatin Calcium 10 MG TAB PO SCH (20:20)
[2023-06-01] MEDS: Aspirin 81 mg Enteric Coated Tablet PO SCH (20:20)
[2023-06-01] MEDS: Meclizine HCl 25 MG TAB PO PRN (20:27)
[2023-06-02] MEDS: Levothyroxine Sodium 100 MCG TAB PO SCH (05:59)
[2023-06-02] MEDS: Cholecalciferol 1,000 UNITS (25 MCG) TAB PO SCH (08:03)
[2023-06-02] MEDS: Losartan 25 MG TAB PO SCH (08:04)
[2023-06-02] MEDS: clonazePAM 0.5 MG TAB PO SCH ×2 (08:04→20:11)
[2023-06-02] MEDS: Acetaminophen/Codeine 30-300mg Tablet PO PRN (08:04)
[2023-06-02] MEDS: Escitalopram Oxalate 10 mg Tablet PO SCH (08:04)
[2023-06-02] MEDS: Lantus 1000 UNITS/10 ML VIAL SC SCH (08:06)
[2023-06-02] MEDS: Polyethylene Glycol 3350 17 GM Packet PO SCH (08:08)
[2023-06-02] MEDS: Senokot S 8.6-50 MG TAB PO SCH ×2 (08:08→20:12)
[2023-06-02] MEDS: rOPINIRole HCl 0.25 MG TAB PO SCH (17:07)
[2023-06-02] MEDS: Ibuprofen 400 MG TAB PO PRN (20:11)
[2023-06-02] MEDS: Atorvastatin Calcium 10 MG TAB PO SCH (20:12)
[2023-06-02] MEDS: Propranolol 10 MG TAB PO SCH (20:12)
[2023-06-02] MEDS: Aspirin 81 mg Enteric Coated Tablet PO SCH (20:13)
[2023-06-03] MEDS: Ibuprofen 400 MG TAB PO PRN ×2 (05:22→20:47)
[2023-06-03] MEDS: Levothyroxine Sodium 100 MCG TAB PO SCH (05:23)
[2023-06-03] MEDS: Cholecalciferol 1,000 UNITS (25 MCG) TAB PO SCH (08:17)
[2023-06-03] MEDS: clonazePAM 0.5 MG TAB PO SCH ×2 (08:17→20:47)
[2023-06-03] MEDS: Escitalopram Oxalate 10 mg Tablet PO SCH (08:18)
[2023-06-03] MEDS: Lantus 1000 UNITS/10 ML VIAL SC SCH (08:19)
[2023-06-03] MEDS: Losartan 25 MG TAB PO SCH (08:20)
[2023-06-03] MEDS: Senokot S 8.6-50 MG TAB PO SCH ×2 (08:21→20:49)
[2023-06-03] MEDS: Polyethylene Glycol 3350 17 GM Packet PO SCH (08:21)
[2023-06-03] MEDS: rOPINIRole HCl 0.25 MG TAB PO SCH (17:15)
[2023-06-03] MEDS: Propranolol 10 MG TAB PO SCH (20:48)
[2023-06-03] MEDS: Aspirin 81 mg Enteric Coated Tablet PO SCH (20:48)
[2023-06-03] MEDS: Atorvastatin Calcium 10 MG TAB PO SCH (20:48)
[2023-06-04] MEDS: Ibuprofen 400 MG TAB PO PRN ×2 (05:52→20:30)
[2023-06-04] MEDS: Levothyroxine Sodium 100 MCG TAB PO SCH (05:53)
[2023-06-04] MEDS: Senokot S 8.6-50 MG TAB PO SCH ×2 (08:14→20:31)
[2023-06-04] MEDS: Escitalopram Oxalate 10 mg Tablet PO SCH (08:14)
[2023-06-04] MEDS: Losartan 25 MG TAB PO SCH (08:14)
[2023-06-04] MEDS: Cholecalciferol 1,000 UNITS (25 MCG) TAB PO SCH (08:14)
[2023-06-04] MEDS: Lantus 1000 UNITS/10 ML VIAL SC SCH (08:15)
[2023-06-04] MEDS: clonazePAM 0.5 MG TAB PO SCH ×2 (08:15→20:31)
[2023-06-04] MEDS: Polyethylene Glycol 3350 17 GM Packet PO SCH (08:16)
[2023-06-04] MEDS: Meclizine HCl 25 MG TAB PO PRN (10:11)
[2023-06-04] MEDS: rOPINIRole HCl 0.25 MG TAB PO SCH (17:07)
[2023-06-04] MEDS: Atorvastatin Calcium 10 MG TAB PO SCH (20:29)
[2023-06-04] MEDS: Aspirin 81 mg Enteric Coated Tablet PO SCH (20:30)
[2023-06-04] MEDS: Propranolol 10 MG TAB PO SCH (20:30)
[2023-06-05] MEDS: Ibuprofen 400 MG TAB PO PRN ×2 (06:00→21:12)
[2023-06-05] MEDS: Levothyroxine Sodium 100 MCG TAB PO SCH (06:03)
[2023-06-05] MEDS: Polyethylene Glycol 3350 17 GM Packet PO SCH (09:07)
[2023-06-05] MEDS: Escitalopram Oxalate 10 mg Tablet PO SCH (09:08)
[2023-06-05] MEDS: clonazePAM 0.5 MG TAB PO SCH ×2 (09:08→21:09)
[2023-06-05] MEDS: Losartan 25 MG TAB PO SCH (09:08)
[2023-06-05] MEDS: Senokot S 8.6-50 MG TAB PO SCH ×2 (09:08→21:08)
[2023-06-05] MEDS: Cholecalciferol 1,000 UNITS (25 MCG) TAB PO SCH (09:08)
[2023-06-05] MEDS: Lantus 1000 UNITS/10 ML VIAL SC SCH (09:09)
[2023-06-05] MEDS: rOPINIRole HCl 0.25 MG TAB PO SCH (16:58)
[2023-06-05] MEDS: Aspirin 81 mg Enteric Coated Tablet PO SCH (21:08)
[2023-06-05] MEDS: Propranolol 10 MG TAB PO SCH (21:08)
[2023-06-05] MEDS: Atorvastatin Calcium 10 MG TAB PO SCH (21:09)
[2023-06-06] MEDS: Levothyroxine Sodium 100 MCG TAB PO SCH (06:07)
[2023-06-06] MEDS: Ibuprofen 400 MG TAB PO PRN ×2 (06:07→20:33)
[2023-06-06] MEDS: Polyethylene Glycol 3350 17 GM Packet PO SCH (08:49)
[2023-06-06] MEDS: Losartan 25 MG TAB PO SCH (08:49)
[2023-06-06] MEDS: Lantus 1000 UNITS/10 ML VIAL SC SCH (08:50)
[2023-06-06] MEDS: Senokot S 8.6-50 MG TAB PO SCH ×2 (08:50→20:34)
[2023-06-06] MEDS: Cholecalciferol 1,000 UNITS (25 MCG) TAB PO SCH (08:50)
[2023-06-06] MEDS: Escitalopram Oxalate 10 mg Tablet PO SCH (08:50)
[2023-06-06] MEDS: clonazePAM 0.5 MG TAB PO SCH ×2 (08:51→20:36)
[2023-06-06] MEDS ORDERED: Acetaminophen/Codeine 30-300mg Tablet PO PRN (11:17)
[2023-06-06] MEDS: rOPINIRole HCl 0.25 MG TAB PO SCH (17:06)
[2023-06-06] MEDS: Atorvastatin Calcium 10 MG TAB PO SCH (20:33)
[2023-06-06] MEDS: Aspirin 81 mg Enteric Coated Tablet PO SCH (20:34)
[2023-06-06] MEDS: Propranolol 10 MG TAB PO SCH (20:34)
[2023-06-07] MEDS: Ibuprofen 400 MG TAB PO PRN ×2 (05:55→20:28)
[2023-06-07] MEDS: Levothyroxine Sodium 100 MCG TAB PO SCH (05:55)
[2023-06-07] MEDS: Lantus 1000 UNITS/10 ML VIAL SC SCH (08:08)
[2023-06-07] MEDS: clonazePAM 0.5 MG TAB PO SCH ×2 (08:10→20:28)
[2023-06-07] MEDS: Cholecalciferol 1,000 UNITS (25 MCG) TAB PO SCH (08:10)
[2023-06-07] MEDS: Escitalopram Oxalate 10 mg Tablet PO SCH (08:11)
[2023-06-07] MEDS: Polyethylene Glycol 3350 17 GM Packet PO SCH (08:11)
[2023-06-07] MEDS: Losartan 25 MG TAB PO SCH (08:11)
[2023-06-07] MEDS: Senokot S 8.6-50 MG TAB PO SCH ×2 (08:11→20:29)
[2023-06-07] MEDS ORDERED: Loratadine 10 MG TAB PO SCH (09:45)
[2023-06-07] MEDS: rOPINIRole HCl 0.25 MG TAB PO SCH (16:44)
[2023-06-07] MEDS: HumaLOG 300 UNITS/3 ML VIAL SC PRN (16:47)
[2023-06-07] MEDS: Atorvastatin Calcium 10 MG TAB PO SCH (20:29)
[2023-06-07] MEDS: Propranolol 10 MG TAB PO SCH (20:29)
[2023-06-07] MEDS: Aspirin 81 mg Enteric Coated Tablet PO SCH (20:29)
[2023-06-08] MEDS: Ibuprofen 400 MG TAB PO PRN ×2 (05:54→18:55)
[2023-06-08] MEDS: Levothyroxine Sodium 100 MCG TAB PO SCH (05:54)
[2023-06-08] MEDS: Polyethylene Glycol 3350 17 GM Packet PO SCH (08:21)
[2023-06-08] MEDS: Losartan 25 MG TAB PO SCH (08:21)
[2023-06-08] MEDS: Senokot S 8.6-50 MG TAB PO SCH ×2 (08:23→22:13)
[2023-06-08] MEDS: Cholecalciferol 1,000 UNITS (25 MCG) TAB PO SCH (08:23)
[2023-06-08] MEDS: Escitalopram Oxalate 10 mg Tablet PO SCH (08:23)
[2023-06-08] MEDS: Lantus 1000 UNITS/10 ML VIAL SC SCH (08:23)
[2023-06-08] MEDS: Loratadine 10 MG TAB PO SCH (08:23)
[2023-06-08] MEDS: clonazePAM 0.5 MG TAB PO SCH ×2 (08:23→20:17)
[2023-06-08] MEDS: rOPINIRole HCl 0.25 MG TAB PO SCH (16:32)
[2023-06-08] MEDS: HumaLOG 300 UNITS/3 ML VIAL SC PRN (16:48)
[2023-06-08] MEDS: Atorvastatin Calcium 10 MG TAB PO SCH (20:18)
[2023-06-08] MEDS: Propranolol 10 MG TAB PO SCH (20:18)
[2023-06-08] MEDS: Aspirin 81 mg Enteric Coated Tablet PO SCH (20:19)
[2023-06-09] MEDS: Ibuprofen 400 MG TAB PO PRN ×2 (05:41→20:38)
[2023-06-09] MEDS: Levothyroxine Sodium 100 MCG TAB PO SCH (05:41)
[2023-06-09] MEDS: Senokot S 8.6-50 MG TAB PO SCH ×2 (08:00→20:42)
[2023-06-09] MEDS: Losartan 25 MG TAB PO SCH (08:00)
[2023-06-09] MEDS: Polyethylene Glycol 3350 17 GM Packet PO SCH (08:00)
[2023-06-09] MEDS: Cholecalciferol 1,000 UNITS (25 MCG) TAB PO SCH (08:00)
[2023-06-09] MEDS: clonazePAM 0.5 MG TAB PO SCH ×2 (08:01→20:37)
[2023-06-09] MEDS: Escitalopram Oxalate 10 mg Tablet PO SCH (08:03)
[2023-06-09] MEDS: Lantus 1000 UNITS/10 ML VIAL SC SCH (08:06)
[2023-06-09] MEDS: Loratadine 10 MG TAB PO SCH (08:06)
[2023-06-09] MEDS: rOPINIRole HCl 0.25 MG TAB PO SCH (16:49)
[2023-06-09] MEDS: Aspirin 81 mg Enteric Coated Tablet PO SCH (20:37)
[2023-06-09] MEDS: Atorvastatin Calcium 10 MG TAB PO SCH (20:38)
[2023-06-09] MEDS: Propranolol 10 MG TAB PO SCH (20:38)
[2023-06-10] MEDS: Ibuprofen 400 MG TAB PO PRN ×2 (05:53→21:11)
[2023-06-10] MEDS: Levothyroxine Sodium 100 MCG TAB PO SCH (05:54)
[2023-06-10] MEDS: clonazePAM 0.5 MG TAB PO SCH ×2 (09:02→21:07)
[2023-06-10] MEDS: Losartan 25 MG TAB PO SCH (09:03)
[2023-06-10] MEDS: Loratadine 10 MG TAB PO SCH (09:03)
[2023-06-10] MEDS: Senokot S 8.6-50 MG TAB PO SCH ×2 (09:03→21:07)
[2023-06-10] MEDS: Escitalopram Oxalate 10 mg Tablet PO SCH (09:03)
[2023-06-10] MEDS: Cholecalciferol 1,000 UNITS (25 MCG) TAB PO SCH (09:03)
[2023-06-10] MEDS: HumaLOG 300 UNITS/3 ML VIAL SC PRN ×2 (09:04→17:21)
[2023-06-10] MEDS: Polyethylene Glycol 3350 17 GM Packet PO SCH (09:06)
[2023-06-10] MEDS: Lantus 1000 UNITS/10 ML VIAL SC SCH (09:06)
[2023-06-10] MEDS: rOPINIRole HCl 0.25 MG TAB PO SCH (17:21)
[2023-06-10] MEDS: Aspirin 81 mg Enteric Coated Tablet PO SCH (21:06)
[2023-06-10] MEDS: Atorvastatin Calcium 10 MG TAB PO SCH (21:07)
[2023-06-10] MEDS: Propranolol 10 MG TAB PO SCH (21:07)
[2023-06-11] MEDS: Levothyroxine Sodium 100 MCG TAB PO SCH (05:34)
[2023-06-11 05:35] LABS: Hematocrit 36.9 % (36.0-47.0); Hemoglobin 12.6 g/dL (12.0-16.0); Platelet Count 149 10x3/uL (130-400)
[2023-06-11] MEDS: Lantus 1000 UNITS/10 ML VIAL SC SCH (08:37)
[2023-06-11] MEDS: Escitalopram Oxalate 10 mg Tablet PO SCH (08:37)
[2023-06-11] MEDS: Cholecalciferol 1,000 UNITS (25 MCG) TAB PO SCH (08:37)
[2023-06-11] MEDS: clonazePAM 0.5 MG TAB PO SCH ×2 (08:37→20:25)
[2023-06-11] MEDS: Senokot S 8.6-50 MG TAB PO SCH ×2 (08:38→20:25)
[2023-06-11] MEDS: Loratadine 10 MG TAB PO SCH (08:38)
[2023-06-11] MEDS: Polyethylene Glycol 3350 17 GM Packet PO SCH (08:38)
[2023-06-11] MEDS: Losartan 25 MG TAB PO SCH (08:39)
[2023-06-11] MEDS: rOPINIRole HCl 0.25 MG TAB PO SCH (17:14)
[2023-06-11] MEDS: HumaLOG 300 UNITS/3 ML VIAL SC PRN (17:15)
[2023-06-11] MEDS: Propranolol 10 MG TAB PO SCH (20:24)
[2023-06-11] MEDS: Aspirin 81 mg Enteric Coated Tablet PO SCH (20:24)
[2023-06-11] MEDS: Atorvastatin Calcium 10 MG TAB PO SCH (20:25)
[2023-06-11] MEDS: Ibuprofen 400 MG TAB PO PRN (20:25)
[2023-06-12] MEDS: Levothyroxine Sodium 100 MCG TAB PO SCH (05:52)
[2023-06-12] MEDS: clonazePAM 0.5 MG TAB PO SCH ×2 (08:37→20:43)
[2023-06-12] MEDS: Loratadine 10 MG TAB PO SCH (08:37)
[2023-06-12] MEDS: Senokot S 8.6-50 MG TAB PO SCH ×2 (08:37→20:45)
[2023-06-12] MEDS: Cholecalciferol 1,000 UNITS (25 MCG) TAB PO SCH (08:37)
[2023-06-12] MEDS: Losartan 25 MG TAB PO SCH (08:37)
[2023-06-12] MEDS: Escitalopram Oxalate 10 mg Tablet PO SCH (08:37)
[2023-06-12] MEDS: Lantus 1000 UNITS/10 ML VIAL SC SCH (08:38)
[2023-06-12] MEDS: Polyethylene Glycol 3350 17 GM Packet PO SCH (08:39)
[2023-06-12] MEDS: HumaLOG 300 UNITS/3 ML VIAL SC PRN ×2 (08:39→17:04)
[2023-06-12] MEDS: rOPINIRole HCl 0.25 MG TAB PO SCH (17:01)
[2023-06-12] MEDS: Ibuprofen 400 MG TAB PO PRN (18:18)
[2023-06-12] MEDS: Atorvastatin Calcium 10 MG TAB PO SCH (20:44)
[2023-06-12] MEDS: Propranolol 10 MG TAB PO SCH (20:44)
[2023-06-12] MEDS: Aspirin 81 mg Enteric Coated Tablet PO SCH (20:45)
[2023-06-13] MEDS: Levothyroxine Sodium 100 MCG TAB PO SCH (06:01)
[2023-06-13] MEDS: Escitalopram Oxalate 10 mg Tablet PO SCH (08:31)
[2023-06-13] MEDS: Cholecalciferol 1,000 UNITS (25 MCG) TAB PO SCH (08:32)
[2023-06-13] MEDS: Lantus 1000 UNITS/10 ML VIAL SC SCH (08:32)
[2023-06-13] MEDS: Polyethylene Glycol 3350 17 GM Packet PO SCH (08:32)
[2023-06-13] MEDS: clonazePAM 0.5 MG TAB PO SCH ×2 (08:32→20:38)
[2023-06-13] MEDS: Loratadine 10 MG TAB PO SCH ×2 (08:32→08:41)
[2023-06-13] MEDS: Losartan 25 MG TAB PO SCH (08:32)
[2023-06-13] MEDS: Senokot S 8.6-50 MG TAB PO SCH ×2 (08:32→20:38)
[2023-06-13] MEDS ORDERED: Ipratropium/Albuterol 3 ML NEB NEB PRN (09:37)
[2023-06-13] MEDS: rOPINIRole HCl 0.25 MG TAB PO SCH (16:54)
[2023-06-13] MEDS: HumaLOG 300 UNITS/3 ML VIAL SC PRN (16:54)
[2023-06-13] MEDS: Aspirin 81 mg Enteric Coated Tablet PO SCH (20:38)
[2023-06-13] MEDS: Atorvastatin Calcium 10 MG TAB PO SCH (20:38)
[2023-06-13] MEDS: Ibuprofen 400 MG TAB PO PRN (20:39)
[2023-06-13] MEDS: Propranolol 10 MG TAB PO SCH (20:39)
[2023-06-14] MEDS: Levothyroxine Sodium 100 MCG TAB PO SCH (05:06)
[2023-06-14] MEDS: Ibuprofen 400 MG TAB PO PRN ×2 (05:06→19:12)
[2023-06-14] MEDS: Polyethylene Glycol 3350 17 GM Packet PO SCH (08:35)
[2023-06-14] MEDS: Loratadine 10 MG TAB PO SCH (08:35)
[2023-06-14] MEDS: clonazePAM 0.5 MG TAB PO SCH ×2 (08:35→21:13)
[2023-06-14] MEDS: Escitalopram Oxalate 10 mg Tablet PO SCH (08:36)
[2023-06-14] MEDS: Losartan 25 MG TAB PO SCH (08:36)
[2023-06-14] MEDS: Lantus 1000 UNITS/10 ML VIAL SC SCH (08:36)
[2023-06-14] MEDS: Senokot S 8.6-50 MG TAB PO SCH ×2 (08:36→21:12)
[2023-06-14] MEDS: HumaLOG 300 UNITS/3 ML VIAL SC PRN ×2 (08:36→17:00)
[2023-06-14] MEDS: Cholecalciferol 1,000 UNITS (25 MCG) TAB PO SCH (08:36)
[2023-06-14] MEDS: rOPINIRole HCl 0.25 MG TAB PO SCH (16:58)
[2023-06-14] MEDS: Propranolol 10 MG TAB PO SCH (21:11)
[2023-06-14] MEDS: Aspirin 81 mg Enteric Coated Tablet PO SCH (21:12)
[2023-06-14] MEDS: Atorvastatin Calcium 10 MG TAB PO SCH (21:12)
[2023-06-15] MEDS: Levothyroxine Sodium 100 MCG TAB PO SCH (04:50)
[2023-06-15] MEDS: Ibuprofen 400 MG TAB PO PRN ×2 (04:51→20:00)
[2023-06-15] MEDS: Polyethylene Glycol 3350 17 GM Packet PO SCH (09:19)
[2023-06-15] MEDS: Senokot S 8.6-50 MG TAB PO SCH ×2 (09:20→20:02)
[2023-06-15] MEDS: Escitalopram Oxalate 10 mg Tablet PO SCH (09:20)
[2023-06-15] MEDS: Loratadine 10 MG TAB PO SCH (09:20)
[2023-06-15] MEDS: Cholecalciferol 1,000 UNITS (25 MCG) TAB PO SCH (09:20)
[2023-06-15] MEDS: Losartan 25 MG TAB PO SCH (09:20)
[2023-06-15] MEDS: clonazePAM 0.5 MG TAB PO SCH ×2 (09:20→20:01)
[2023-06-15] MEDS: HumaLOG 300 UNITS/3 ML VIAL SC PRN ×2 (09:21→17:17)
[2023-06-15] MEDS: Lantus 1000 UNITS/10 ML VIAL SC SCH (09:21)
[2023-06-15] MEDS: rOPINIRole HCl 0.25 MG TAB PO SCH (17:17)
[2023-06-15] MEDS: Simethicone Chewable 80 MG TAB PO PRN (19:35)
[2023-06-15] MEDS: Propranolol 10 MG TAB PO SCH (20:01)
[2023-06-15] MEDS: Aspirin 81 mg Enteric Coated Tablet PO SCH (20:01)
[2023-06-15] MEDS: Atorvastatin Calcium 10 MG TAB PO SCH (20:01)
[2023-06-16] MEDS: Ibuprofen 400 MG TAB PO PRN ×2 (05:05→18:03)
[2023-06-16] MEDS: Levothyroxine Sodium 100 MCG TAB PO SCH (05:06)
[2023-06-16] MEDS: Escitalopram Oxalate 10 mg Tablet PO SCH (09:39)
[2023-06-16] MEDS: Senokot S 8.6-50 MG TAB PO SCH ×2 (09:39→20:35)
[2023-06-16] MEDS: clonazePAM 0.5 MG TAB PO SCH ×2 (09:39→20:35)
[2023-06-16] MEDS: Polyethylene Glycol 3350 17 GM Packet PO SCH (09:39)
[2023-06-16] MEDS: Loratadine 10 MG TAB PO SCH (09:39)
[2023-06-16] MEDS: Losartan 25 MG TAB PO SCH (09:39)
[2023-06-16] MEDS: Cholecalciferol 1,000 UNITS (25 MCG) TAB PO SCH (09:39)
[2023-06-16] MEDS: Lantus 1000 UNITS/10 ML VIAL SC SCH (09:40)
[2023-06-16] MEDS: HumaLOG 300 UNITS/3 ML VIAL SC PRN ×2 (10:02→16:53)
[2023-06-16] MEDS: rOPINIRole HCl 0.25 MG TAB PO SCH (16:52)
[2023-06-16] MEDS: Atorvastatin Calcium 10 MG TAB PO SCH (20:34)
[2023-06-16] MEDS: Propranolol 10 MG TAB PO SCH (20:34)
[2023-06-16] MEDS: Aspirin 81 mg Enteric Coated Tablet PO SCH (20:36)
[2023-06-17] MEDS: Levothyroxine Sodium 100 MCG TAB PO SCH (05:43)
[2023-06-17] MEDS: Ibuprofen 400 MG TAB PO PRN ×2 (05:45→17:03)
[2023-06-17] MEDS: HumaLOG 300 UNITS/3 ML VIAL SC PRN ×2 (08:04→17:04)
[2023-06-17] MEDS: Lantus 1000 UNITS/10 ML VIAL SC SCH (08:05)
[2023-06-17] MEDS: Senokot S 8.6-50 MG TAB PO SCH ×2 (08:06→20:27)
[2023-06-17] MEDS: Polyethylene Glycol 3350 17 GM Packet PO SCH (08:06)
[2023-06-17] MEDS: clonazePAM 0.5 MG TAB PO SCH ×2 (08:06→20:26)
[2023-06-17] MEDS: Cholecalciferol 1,000 UNITS (25 MCG) TAB PO SCH (08:07)
[2023-06-17] MEDS: Losartan 25 MG TAB PO SCH (08:07)
[2023-06-17] MEDS: Loratadine 10 MG TAB PO SCH (08:07)
[2023-06-17] MEDS: Escitalopram Oxalate 10 mg Tablet PO SCH (08:07)
[2023-06-17] MEDS: Simethicone Chewable 80 MG TAB PO PRN (13:54)
[2023-06-17] MEDS: rOPINIRole HCl 0.25 MG TAB PO SCH (17:03)
[2023-06-17] MEDS: Propranolol 10 MG TAB PO SCH (20:26)
[2023-06-17] MEDS: Atorvastatin Calcium 10 MG TAB PO SCH (20:27)
[2023-06-17] MEDS: Aspirin 81 mg Enteric Coated Tablet PO SCH (20:27)
[2023-06-18] MEDS: Levothyroxine Sodium 100 MCG TAB PO SCH (05:00)
[2023-06-18] MEDS: Ibuprofen 400 MG TAB PO PRN ×2 (05:06→20:10)
[2023-06-18 05:23] LABS: Hematocrit 37.2 % (36.0-47.0); Hemoglobin 12.8 g/dL (12.0-16.0); Platelet Count 177 10x3/uL (130-400)
[2023-06-18] MEDS: Cholecalciferol 1,000 UNITS (25 MCG) TAB PO SCH (08:25)
[2023-06-18] MEDS: Escitalopram Oxalate 10 mg Tablet PO SCH (08:25)
[2023-06-18] MEDS: Losartan 25 MG TAB PO SCH (08:25)
[2023-06-18] MEDS: Polyethylene Glycol 3350 17 GM Packet PO SCH (08:25)
[2023-06-18] MEDS: Loratadine 10 MG TAB PO SCH (08:25)
[2023-06-18] MEDS: clonazePAM 0.5 MG TAB PO SCH ×2 (08:26→20:10)
[2023-06-18] MEDS: Senokot S 8.6-50 MG TAB PO SCH ×2 (08:26→20:11)
[2023-06-18] MEDS: HumaLOG 300 UNITS/3 ML VIAL SC PRN (08:26)
[2023-06-18] MEDS: Lantus 1000 UNITS/10 ML VIAL SC SCH (08:27)
[2023-06-18] MEDS: rOPINIRole HCl 0.25 MG TAB PO SCH (16:52)
[2023-06-18] MEDS: Propranolol 10 MG TAB PO SCH (20:10)
[2023-06-18] MEDS: Atorvastatin Calcium 10 MG TAB PO SCH (20:11)
[2023-06-18] MEDS: Aspirin 81 mg Enteric Coated Tablet PO SCH (20:11)
[2023-06-19] MEDS: Levothyroxine Sodium 100 MCG TAB PO SCH (05:38)
[2023-06-19] MEDS: Cholecalciferol 1,000 UNITS (25 MCG) TAB PO SCH (08:59)
[2023-06-19] MEDS: clonazePAM 0.5 MG TAB PO SCH ×2 (08:59→21:35)
[2023-06-19] MEDS: Escitalopram Oxalate 10 mg Tablet PO SCH (08:59)
[2023-06-19] MEDS: Senokot S 8.6-50 MG TAB PO SCH ×2 (08:59→20:09)
[2023-06-19] MEDS: Losartan 25 MG TAB PO SCH (08:59)
[2023-06-19] MEDS: Polyethylene Glycol 3350 17 GM Packet PO SCH (08:59)
[2023-06-19] MEDS: Loratadine 10 MG TAB PO SCH (09:00)
[2023-06-19] MEDS: Lantus 1000 UNITS/10 ML VIAL SC SCH (09:01)
[2023-06-19] MEDS: rOPINIRole HCl 0.25 MG TAB PO SCH (17:00)
[2023-06-19] MEDS: HumaLOG 300 UNITS/3 ML VIAL SC PRN (17:00)
[2023-06-19] MEDS: Ibuprofen 400 MG TAB PO PRN (17:04)
[2023-06-19] MEDS: Aspirin 81 mg Enteric Coated Tablet PO SCH (20:09)
[2023-06-19] MEDS: Propranolol 10 MG TAB PO SCH (20:09)
[2023-06-19] MEDS: Atorvastatin Calcium 10 MG TAB PO SCH (20:09)
[2023-06-20] MEDS: Levothyroxine Sodium 100 MCG TAB PO SCH (06:17)
[2023-06-20] MEDS: Ibuprofen 400 MG TAB PO PRN ×2 (06:17→19:32)
[2023-06-20] MEDS: Lantus 1000 UNITS/10 ML VIAL SC SCH (09:36)
[2023-06-20] MEDS: clonazePAM 0.5 MG TAB PO SCH ×2 (09:36→20:28)
[2023-06-20] MEDS: Escitalopram Oxalate 10 mg Tablet PO SCH (09:37)
[2023-06-20] MEDS: Cholecalciferol 1,000 UNITS (25 MCG) TAB PO SCH (09:37)
[2023-06-20] MEDS: Loratadine 10 MG TAB PO SCH (09:37)
[2023-06-20] MEDS: Losartan 25 MG TAB PO SCH (09:37)
[2023-06-20] MEDS: Senokot S 8.6-50 MG TAB PO SCH ×2 (09:37→20:29)
[2023-06-20] MEDS: Polyethylene Glycol 3350 17 GM Packet PO SCH (09:38)
[2023-06-20] MEDS: HumaLOG 300 UNITS/3 ML VIAL SC PRN (12:14)
[2023-06-20] MEDS: rOPINIRole HCl 0.25 MG TAB PO SCH (17:14)
[2023-06-20] MEDS: Propranolol 10 MG TAB PO SCH (20:29)
[2023-06-20] MEDS: Aspirin 81 mg Enteric Coated Tablet PO SCH (20:29)
[2023-06-20] MEDS: Atorvastatin Calcium 10 MG TAB PO SCH (20:29)
[2023-06-21] MEDS: Levothyroxine Sodium 100 MCG TAB PO SCH (05:30)
[2023-06-21] MEDS: Ibuprofen 400 MG TAB PO PRN ×3 (05:30→20:04)
[2023-06-21] MEDS: Aspirin 81 mg Enteric Coated Tablet PO SCH ×2 (08:17→20:06)
[2023-06-21] MEDS: Escitalopram Oxalate 10 mg Tablet PO SCH (08:18)
[2023-06-21] MEDS: Losartan 25 MG TAB PO SCH (08:18)
[2023-06-21] MEDS: clonazePAM 0.5 MG TAB PO SCH ×2 (08:18→20:05)
[2023-06-21] MEDS: Loratadine 10 MG TAB PO SCH (08:18)
[2023-06-21] MEDS: Lantus 1000 UNITS/10 ML VIAL SC SCH (08:19)
[2023-06-21] MEDS: Cholecalciferol 1,000 UNITS (25 MCG) TAB PO SCH (08:19)
[2023-06-21] MEDS: Polyethylene Glycol 3350 17 GM Packet PO SCH (08:21)
[2023-06-21] MEDS: Senokot S 8.6-50 MG TAB PO SCH ×2 (08:21→20:06)
[2023-06-21] MEDS ORDERED: tiZANidine HCl 4 MG TAB PO PRN (14:22)
[2023-06-21] MEDS: rOPINIRole HCl 0.25 MG TAB PO SCH (17:10)
[2023-06-21] MEDS: Propranolol 10 MG TAB PO SCH (20:05)
[2023-06-21] MEDS: Atorvastatin Calcium 10 MG TAB PO SCH (20:06)
[2023-06-22] MEDS: Ibuprofen 400 MG TAB PO PRN ×2 (05:41→17:27)
[2023-06-22] MEDS: Levothyroxine Sodium 100 MCG TAB PO SCH (05:41)
[2023-06-22] MEDS: clonazePAM 0.5 MG TAB PO SCH ×2 (08:18→20:12)
[2023-06-22] MEDS: Loratadine 10 MG TAB PO SCH (08:20)
[2023-06-22] MEDS: Losartan 25 MG TAB PO SCH (08:20)
[2023-06-22] MEDS: Escitalopram Oxalate 10 mg Tablet PO SCH (08:20)
[2023-06-22] MEDS: Aspirin 81 mg Enteric Coated Tablet PO SCH ×2 (08:20→20:12)
[2023-06-22] MEDS: Polyethylene Glycol 3350 17 GM Packet PO SCH (08:21)
[2023-06-22] MEDS: Senokot S 8.6-50 MG TAB PO SCH ×2 (08:21→20:12)
[2023-06-22] MEDS: Cholecalciferol 1,000 UNITS (25 MCG) TAB PO SCH (08:21)
[2023-06-22] MEDS: Lantus 1000 UNITS/10 ML VIAL SC SCH (08:22)
[2023-06-22] MEDS ORDERED: Docusate 100 MG CAP PO PRN (09:46)
[2023-06-22] MEDS: rOPINIRole HCl 0.25 MG TAB PO SCH (17:23)
[2023-06-22] MEDS: HumaLOG 300 UNITS/3 ML VIAL SC PRN (17:25)
[2023-06-22] MEDS: Propranolol 10 MG TAB PO SCH (20:12)
[2023-06-22] MEDS: Atorvastatin Calcium 10 MG TAB PO SCH (20:12)
[2023-06-23] MEDS: Ibuprofen 400 MG TAB PO PRN ×2 (05:44→20:02)
[2023-06-23] MEDS: Levothyroxine Sodium 100 MCG TAB PO SCH (05:44)
[2023-06-23] MEDS: Aspirin 81 mg Enteric Coated Tablet PO SCH ×2 (07:59→20:01)
[2023-06-23] MEDS: Senokot S 8.6-50 MG TAB PO SCH ×2 (07:59→20:01)
[2023-06-23] MEDS: Losartan 25 MG TAB PO SCH (07:59)
[2023-06-23] MEDS: Escitalopram Oxalate 10 mg Tablet PO SCH (07:59)
[2023-06-23] MEDS: clonazePAM 0.5 MG TAB PO SCH ×2 (08:00→20:00)
[2023-06-23] MEDS: Cholecalciferol 1,000 UNITS (25 MCG) TAB PO SCH (08:00)
[2023-06-23] MEDS: Loratadine 10 MG TAB PO SCH (08:00)
[2023-06-23] MEDS: Lantus 1000 UNITS/10 ML VIAL SC SCH (08:02)
[2023-06-23] MEDS: Polyethylene Glycol 3350 17 GM Packet PO SCH (08:05)
[2023-06-23] MEDS: rOPINIRole HCl 0.25 MG TAB PO SCH (17:17)
[2023-06-23] MEDS: Propranolol 10 MG TAB PO SCH (20:00)
[2023-06-23] MEDS: Atorvastatin Calcium 10 MG TAB PO SCH (20:01)
[2023-06-24] MEDS: Ibuprofen 400 MG TAB PO PRN ×2 (05:32→18:51)
[2023-06-24] MEDS: Levothyroxine Sodium 100 MCG TAB PO SCH (05:32)
[2023-06-24] MEDS: Senokot S 8.6-50 MG TAB PO SCH ×2 (07:58→20:21)
[2023-06-24] MEDS: clonazePAM 0.5 MG TAB PO SCH ×2 (07:58→20:22)
[2023-06-24] MEDS: Escitalopram Oxalate 10 mg Tablet PO SCH (08:01)
[2023-06-24] MEDS: Lantus 1000 UNITS/10 ML VIAL SC SCH (08:01)
[2023-06-24] MEDS: Loratadine 10 MG TAB PO SCH (08:01)
[2023-06-24] MEDS: Aspirin 81 mg Enteric Coated Tablet PO SCH ×2 (08:01→20:21)
[2023-06-24] MEDS: Cholecalciferol 1,000 UNITS (25 MCG) TAB PO SCH (08:01)
[2023-06-24] MEDS: Losartan 25 MG TAB PO SCH (08:01)
[2023-06-24] MEDS: Polyethylene Glycol 3350 17 GM Packet PO SCH (08:02)
[2023-06-24 08:08] VITALS: BMI 26.2
[2023-06-24] MEDS: HumaLOG 300 UNITS/3 ML VIAL SC PRN ×2 (11:42→16:33)
[2023-06-24] MEDS: rOPINIRole HCl 0.25 MG TAB PO SCH (16:32)
[2023-06-24] MEDS: Atorvastatin Calcium 10 MG TAB PO SCH (20:21)
[2023-06-24] MEDS: Propranolol 10 MG TAB PO SCH (20:22)
[2023-06-25] MEDS: Levothyroxine Sodium 100 MCG TAB PO SCH (05:14)
[2023-06-25] MEDS: Ibuprofen 400 MG TAB PO PRN (05:16)
[2023-06-25 07:39] VITALS: BP 114/66; TEMP 98.6
[2023-06-25] MEDS: clonazePAM 0.5 MG TAB PO SCH (08:19)
[2023-06-25] MEDS: Lantus 1000 UNITS/10 ML VIAL SC SCH (08:21)
[2023-06-25] MEDS: Losartan 25 MG TAB PO SCH (08:21)
[2023-06-25] MEDS: Aspirin 81 mg Enteric Coated Tablet PO SCH (08:25)
[2023-06-25] MEDS: Cholecalciferol 1,000 UNITS (25 MCG) TAB PO SCH (08:26)
[2023-06-25] MEDS: Escitalopram Oxalate 10 mg Tablet PO SCH (08:26)
[2023-06-25] MEDS: Polyethylene Glycol 3350 17 GM Packet PO SCH (08:27)
[2023-06-25] MEDS: Loratadine 10 MG TAB PO SCH (08:27)
[2023-06-25] MEDS: Senokot S 8.6-50 MG TAB PO SCH (08:27)
== END 2023-06-25 14:10 | disposition home or self-care (01) | DRG 560 ==
LOC: MADMS 12:20
PROVIDERS: ADMIT Family Medicine; ATTEND Family Medicine
DX: S72.001D Fracture of unspecified part of neck of right femur, subsequent encounter for closed fracture with routine healing (principal); E87.1 Hypo-osmolality and hyponatremia; W18.30XD Fall on same level, unspecified, subsequent encounter; R53.81 Other malaise; I10 Essential (primary) hypertension; E03.9 Hypothyroidism, unspecified; Z66 Do not resuscitate; E78.5 Hyperlipidemia, unspecified; E11.9 Type 2 diabetes mellitus without complications; K21.9 Gastro-esophageal reflux disease without esophagitis; F41.1 Generalized anxiety disorder; N32.81 Overactive bladder; Z96.641 Presence of right artificial hip joint; Z91.040 Latex allergy status; Z88.8 Allergy status to other drugs, medicaments and biological substances; Z79.82 Long term (current) use of aspirin; Z79.4 Long term (current) use of insulin; Z79.890 Hormone replacement therapy; Z79.899 Other long term (current) drug therapy; Z90.49 Acquired absence of other specified parts of digestive tract; Z87.891 Personal history of nicotine dependence; G25.81 Restless legs syndrome; R42 Dizziness and giddiness
CPT/HCPCS: 36415; 36416; 80048; 82565; 85014; 85018; 85027; 85049; J1650; J1815; Q0162

== ENCOUNTER 2025-06-08 14:36 | Outpatient (CLI) | payer MEDICARE, OTHER ==
[2025-06-08 14:54] LABS: Anion Gap 14 mmol/L (10-20); BUN (Urea Nitrogen) 12 mg/dL (9.8-20.1); Calc. Creatinine Clearance 0 mL/min (70-130); Calcium 8.5 mg/dL (7.8-10.44); Carbon Dioxide 24 mmol/L (23-31); Chloride 102 mmol/L (98-107); Glucose 112 mg/dL (83-110); Potassium 5.4 mmol/L (3.5-5.1); Sodium 135 mmol/L (136-145)
== END 2025-06-08 14:37 | disposition home or self-care (01) ==
LOC: MADLAB 14:36
PROVIDERS: ATTEND Internal Medicine
DX: E87.1 Hypo-osmolality and hyponatremia (principal)
CPT/HCPCS: 80048

== ENCOUNTER 2025-06-25 11:40 | Outpatient (CLI) | payer MEDICARE, OTHER ==
[2025-06-25 12:40] LABS: Anion Gap 21 mmol/L (10-20); BUN (Urea Nitrogen) 14 mg/dL (9.8-20.1); Calc. Creatinine Clearance 0 mL/min (70-130); Calcium 8.9 mg/dL (7.8-10.44); Carbon Dioxide 19 mmol/L (23-31); Chloride 101 mmol/L (98-107); Glucose 182 mg/dL (83-110); Potassium 4.5 mmol/L (3.5-5.1); Sodium 136 mmol/L (136-145)
== END 2025-06-25 11:41 | disposition home or self-care (01) ==
LOC: MADLAB 11:40
PROVIDERS: ATTEND Internal Medicine
DX: E87.1 Hypo-osmolality and hyponatremia (principal)
CPT/HCPCS: 80048

== ENCOUNTER 2025-06-28 10:44 | Outpatient (CLI) | payer MEDICARE, OTHER ==
[2025-06-28 10:57] LABS: Glucose, Urine (Dipstick) Negative (Negative); Leukocyte Small (Negative); Protein, Urine (Dipstick) Negative (Neg-Trace); Specific Gravity, Urine Greater/Equal 1.030 (1.005-1.030)
[2025-06-28 11:03] LABS: WBC/HPF 21-50 HPF (0-3)
[2025-06-28 11:04] LABS: Bacteria/HPF 2+ HPF (None Seen)
== END 2025-06-28 10:45 | disposition home or self-care (01) ==
LOC: MADLAB 10:44
PROVIDERS: ATTEND Internal Medicine
DX: E87.1 Hypo-osmolality and hyponatremia (principal)
CPT/HCPCS: 81001; 87086

== ENCOUNTER 2025-07-25 14:33 | Outpatient (CLI) | payer MEDICARE, OTHER ==
[2025-07-25 15:49] LABS: Hematocrit 40.3 % (36.0-47.0); Hemoglobin 13.2 g/dL (12.0-16.0); MDiff Complete? YES; Mean Corpuscular Hemoglobin 30.0 pg (27.0-31.0); Mean Corpuscular Volume 91.3 fl (78.0-98.0); Platelet Count 218 10x3/uL (130-400); Red Blood Cell (RBC) Count 4.41 mill/uL (4.20-5.40); White Blood Cell (WBC) Count 6.3 10x3/uL (4.8-10.8)
[2025-07-25 15:54] LABS: ALT (SGPT) 13 U/L (Less than 34); AST (SGOT) 18 U/L (11-34); Albumin 3.7 g/dL (3.1-4.5); Alkaline Phosphatase 55 U/L (40-110); Anion Gap 16 mmol/L (10-20); BUN (Urea Nitrogen) 15 mg/dL (9.8-20.1); Bilirubin, Total 0.5 mg/dL (0.3-1.2); Calc. Creatinine Clearance 0 mL/min (70-130); Calcium 8.4 mg/dL (7.8-10.44); Carbon Dioxide 23 mmol/L (23-31); Cardiac Risk 2.8 (Less than 4.5); Chloride 102 mmol/L (98-107); Cholesterol 142 mg/dl (< 200 Desired); Globulin 3.0 g/dL (2.4-3.5); Glucose 98 mg/dL (83-110); HDL Cholesterol 50 mg/dL (>60 Neg Risk); LDL Cholesterol, Calculated 77 mg/dL; Potassium 5.0 mmol/L (3.5-5.1); Sodium 136 mmol/L (136-145); Triglycerides 76 mg/dL (Less than 150)
== END 2025-07-25 14:34 | disposition home or self-care (01) ==
LOC: MADLAB 14:33
PROVIDERS: ATTEND Internal Medicine Endocrinology, Diabetes & Metabolism
DX: E87.1 Hypo-osmolality and hyponatremia (principal)
CPT/HCPCS: 80053; 80061; 82306; 83036; 85025

== ENCOUNTER 2025-08-23 14:31 | Outpatient (CLI) | payer MEDICARE, OTHER ==
[2025-08-23 14:47] LABS: Anion Gap 18 mmol/L (10-20); BUN (Urea Nitrogen) 20 mg/dL (9.8-20.1); Calc. Creatinine Clearance 0 mL/min (70-130); Calcium 8.8 mg/dL (7.8-10.44); Carbon Dioxide 22 mmol/L (23-31); Chloride 102 mmol/L (98-107); Glucose 131 mg/dL (83-110); Potassium 4.7 mmol/L (3.5-5.1); Sodium 137 mmol/L (136-145)
== END 2025-08-23 14:32 | disposition home or self-care (01) ==
LOC: MADLAB 14:31
PROVIDERS: ATTEND Orthopaedic Surgery
DX: E11.9 Type 2 diabetes mellitus without complications (principal); E87.1 Hypo-osmolality and hyponatremia; M80.052D Age-related osteoporosis with current pathological fracture, left femur, subsequent encounter for fracture with routine healing; M80.88XD Other osteoporosis with current pathological fracture, vertebra(e), subsequent encounter for fracture with routine healing; Z79.4 Long term (current) use of insulin
CPT/HCPCS: 80048